=== PATIENT | female | born 1955 | race Caucasian/White ===

== ENCOUNTER 2016-04-06 23:47 | Emergency (ER) | payer OTHER ==
[~2016-04-06] VITALS: Ht 165.1 cm; Wt 67.1 kg
[~2016-04-06 23:47] MED LIST: ASPIRIN81 M4 PO; CRESTOR5 M1 PO; EVISTA60 MG PO; FISH OIL 1,0001 EAC1 PO; MAGNESIUM250 M3 PO
--- NOTE | 2016-04-07 00:03 | ED GI/GU/ABDOMINAL COMPLAINT ---
History of Present Illness General Chief Complaint: Abdominal Pain/Flank Pain Stated Complaint: "LT FLANK PAIN RADIATES TO BACK" Source: patient Exam Limitations: no limitations Vital Signs & Intake/Output Vital Signs & Intake/Output Vital Signs Date Time Temp Pulse Resp B/P Pulse O2 O2 Flow FiO2 Ox Delivery Rate 04/07 0224 96.8 67 18 140/77 99 Room Air 04/07 0003 98 Room Air 04/06 2353 95.6 101 18 148/87 99 Room Air ED Intake and Output 04/07 0000 04/06 1200 Intake Total Output Total Balance Patient 148 lb Weight Allergies Coded Allergies: NO KNOWN ALLERGIES (02/25/12) Triage Note: PT FROM [facility] C/O LEFT SIDED FLANK PAIN. PT STATES SHE THOUGHT IT WAS A UTI THIS AFTERNOON WITH BACK PAIN AND LOWER ABD PAIN AND PT STATES " I FEEL LIKE I HAVE TO PEE, BUT I CANT. I HAVE LEFT SIDED LOWER BACK PAIN THAT RADIATES TO MY LEFT ABD." PT HUNCHED OVER IN TRIAGE. RESTRICTED EXTREMEITY BRACELET APPLIED TO RIGHT ARM FOR MASECTOMY. PT TO RM 1 AWAITING PROVIDER EVAL. PT STATES +N -V/D. Triage Nurses Notes Reviewed? yes ? N Is pt currently ? No HPI: THIS PATIENT IS A 60-YEAR-OLD FEMALE who presented to the emergency department today for evaluation of left flank pain and lower abdominal pain. The patient reported that this morning she felt like she had a urinary tract infection due to a 6 out of 10 pain near her bladder and urinary frequency. However, now she reported she is unable to urinate and reported that she developed sharp, 9 out of 10 left flank pain at approximately 11:00 this evening. She reported that the pain goes into the left side of her abdomen. She reported intermittent chills and mild nausea. She denied any fevers, vomiting, chest pain, difficulty breathing, constipation, diarrhea, or any other associated symptoms. (FREDRICK MEDINA,LEV) Reconcile Medications Aspirin (Aspirin*) 81 MG TAB.CHEW 1 TAB PO Friday HEART HEALTH ( Reported) Magnesium 250 MG TABLET 2 TAB PO DAILY SUPPLEMENT (Reported) Metoclopramide HCl (Reglan) 10 MG TABLET 1 TAB PO 4 TIMES/DAY PRN NAUSEA 30 minutes before meals and bedtime [place]-3 Fatty Acids/Fish Oil (Fish Oil 1,000 MG Softgel) 1 EACH CAPSULE 1 CAP PO DAILY SUPPLEMENT (Reported) Oxycodone HCl/Acetaminophen (Percocet 5-325 MG Tablet) 5 MG-325 MG TABLET 1 TAB PO BID PRN PAIN Raloxifene Hydrochloride (Evista) 60 MG TABLET 1 TAB PO DAILY BONE (Reported) Rosuvastatin Calcium (Crestor) 5 MG TABLET 1 TAB PO DAILY CHOLESTEROL ( Reported) (RAMON GNUYEN,ITALIA Palmer) Past History Travel History Traveled to [place] past 21 day No Medical History Any Pertinent Medical History? see below for history Cardiovascular: hyperlipidemia, MITRAL VALVE Musculoskeletal: osteoporosis Cancer(s): breast cancer Surgical History Surgical History: cholecystectomy, bilateral mastectomy Psychosocial History What is your primary language Chinese Tobacco Use: Never used ETOH Use: occasional use Illicit Drug Use: denies illicit drug use Family History Hx Contributory? No (LEV ALCALA PA-C) Review of Systems Review of Systems Constitutional: Reports: see HPI. EENTM: Reports: no symptoms. Respiratory: Reports: no symptoms. Cardiovascular: Reports: no symptoms. GI: Reports: see HPI. Genitourinary: Reports: see HPI. Musculoskeletal: Reports: see HPI. Skin: Reports: no symptoms. Neurological/Psychological: Reports: no symptoms. All Other Systems: Reviewed and Negative (LEV ALCALA PA-C) Physical Exam Physical Exam Gastrointestinal: normal bowel sounds, soft, no organomegaly, MILD SUPRAPUBIC TENDERNESS. nO PERITONEAL SIGNS. nO REBOUND OR GUARDING. nO mCbURNEY'S POINT TENDERNESS. nEGATIVE rOVSING SIGN. nEGATIVE [place] SIGN Comments: Well-developed well-nourished person in moderate distress HEENT: Normal EENT exam, head normocephalic, moist mucous membranes Neck: Supple, no lymphadenopathy Back: Normal gait. Normal inspection. Positive left-sided CVA tenderness. No midline tenderness Cardiovascular: Regular rate and rhythm with no murmurs, rubs, or gallops Respiratory: Lungs clear to auscultation bilaterally with no wheezes, rales, rhonchi Extremity: Normal and equal pulses Neuro: Alert oriented x3, cranial nerves II through XII grossly intact. Skin: No appreciable rash on exposed skin, skin is warm and dry. Psych: Mood and affect is normal, memory and judgment is normal. Core Measures ACS in differential dx? Yes Severe Sepsis Present: No Septic Shock Present: No (LEV ALCALA PA-C) Progress Differential Diagnosis: AAA, AMI, appendicitis, biliary colic, bowel obstruction , colon cancer, cholecystitis, diverticulitis, ectopic , endometritis, gastritis, hepatitis, ischemic bowel, inflamm bowel dis, intrauterine , kidney stone, ovarian cyst, ovarian torsion, pancreatitis, PID/cervicitis, PUD/ GERD, perforated viscous, threatened AB, UTI/pyelo Plan of Care: Orders Procedure Date/time Status URINE 04/07 1 Complete URINALYSIS 04/07 1 Complete COMPREHENSIVE METABOLIC PANEL 04/07 1 Complete CBC WITHOUT DIFFERENTIAL 04/07 1 Complete Current Medications Sig/Delmar Start time Last Medication Dose Stop Time Status Admin Morphine Sulfate 4 MG ONCE ONE 04/07 29 CAN (Morphine) 04/07 30 Laboratory Tests 04/07/16 0116: Urine Color YEL, Urine Clarity CLEAR, Urine pH 7.0, Ur Specific [place] 1.015, Urine Protein NEG, Urine Ketones NEG, Urine Nitrite NEG, Urine Bilirubin NEG, Urine Urobilinogen 0.2, Ur Leukocyte Esterase NEG, Ur Microscopic SEDIMENT EXAMINED, Urine RBC 5-10 H, Urine WBC RARE, Ur Epithelial Cells RARE, Urine Hemoglobin MOD H, Urine Glucose NEG, Urine Test NEGATIVE 04/07/16 0005: Anion Gap 15, Estimated GFR > 60, BUN/Creatinine Ratio 20.0, Glucose 127 H, Calcium 9.7, Total Bilirubin 0.5, AST 25, ALT 48, Alkaline Phosphatase 68, Total Protein 7.4, Albumin 4.5, Globulin 2.9, Albumin/Globulin Ratio 1.6, CBC w Diff NO MAN DIFF REQ, RBC 4.62, MCV 90.2, MCH 30.7, RDW 13.0, MPV 7.5, Gran % 56.4, Lymphocytes % 33.0, Monocytes % 8.1, Eosinophils % 2.1, Basophils % 0.4, Absolute Granulocytes 4.8, Absolute Lymphocytes 2.8, Absolute Monocytes 0.7 H, Absolute Eosinophils 0.2, Absolute Basophils 0, PUBS MCHC 34.1 Initial ED EKG: none Hand-Off Endorsed To: RAMON NGUYEN,ITALIA Palmer Endorsed Time: 40 Pending: CT, labs (FREDRICK MEDINA,LEV) Diagnostic Imaging: Viewed by Me: CT Scan. Discussed w/RAD: CT Scan. Radiology Impression: abd/pelvic ct... no acute findings... full report below. Comments: PATIENT: JONY CROWLEY PRESENT AGE: 60 PATIENT ACCOUNT NO: [id number] : 56 LOCATION: [facility] ORDERING PHYSICIAN: LEV ALCALA PA-C SERVICE DATE: 04/07/16 EXAM TYPE: CAT - CT ABD & PELVIS W/O IV CONTRAS EXAMINATION: CT ABDOMEN AND PELVIS WITHOUT CONTRAST CLINICAL INFORMATION: Left flank pain COMPARISON: None. TECHNIQUE: Multidetector volumetric imaging was performed from the superior aspect of the liver through the pubic symphysis. Sagittal and coronal reformatted images were obtained on the technologist's workstation. DLP: 308 mGy-cm. FINDINGS: LUNG BASES: The visualized lung bases are unremarkable. Bilateral breast implants partially visualized. LIVER, GALLBLADDER, AND BILIARY TREE: The liver is normal in size, shape, and attenuation. Hepatic cysts are noted. No solid hepatic lesion or biliary ductal dilatation is present. Status post cholecystectomy with surgical clips in the gallbladder fossa. PANCREAS: Unremarkable. SPLEEN: Unremarkable. ADRENAL GLANDS: Unremarkable. KIDNEYS AND URETERS: The kidneys are normal in size, shape, and attenuation. No hydronephrosis, hydroureter, or calculi seen. No perinephric stranding. BLADDER: Unremarkable. GASTROINTESTINAL TRACT: The stomach and small bowel appear unremarkable. No dilated loops of bowel or evidence of obstruction. No colonic wall thickening or inflammatory change. Mild colonic stool burden. Likely status post appendectomy with suture line seen at the cecum. ABDOMINAL WALL: No significant hernia is appreciated. LYMPH NODES: Normal. VASCULAR: Unremarkable. PELVIC VISCERA: The uterus and adnexa are unremarkable. Multiple phleboliths are seen in the pelvis. OSSEOUS STRUCTURES: No acute or suspicious osseous abnormality. IMPRESSION: No acute findings of the abdomen or pelvis. No hydronephrosis or nephrolithiasis. DICTATED BY: BANDAR STARR MD DATE/TIME DICTATED:04/07/16143 AUTOCAD DESIGNER:ELDER DATE/TIME TRANSCRIBED:04/07/16143 CONFIDENTIAL, DO NOT COPY WITHOUT APPROPRIATE AUTHORIZATION. <Electronically signed in Other Vendor System> SIGNED BY: MATTY NGUYEN,BANDAR 04/07 0150 (RAMON NGUYEN,ITALIA Palmer) Departure Departure Disposition: HOME OR SELF CARE Condition: Stable Clinical Impression Primary Impression: Ureterolithiasis Referrals: CLARIBEL NGUYEN,REYNA Perea (PCP/Family) KENNY MORRISSEY MD Additional Instructions: Take medication for pain as prescribed. Strain your urine. Take medication for nausea as prescribed. Be sure to stay hydrated. Please call to make a follow- up appointment with the urologist whose information has been provided to this packet. Return to the emergency department for any worsening symptoms or concerns. Departure Forms: Customer Survey General Discharge Information Prescriptions: Current Visit Scripts Oxycodone HCl/Acetaminophen (Percocet 5-325 MG Tablet) 1 TAB PO BID PRN PAIN #10 TAB Metoclopramide HCl (Reglan) 1 TAB PO 4 TIMES/DAY PRN NAUSEA #16 TAB 30 minutes before meals and bedtime (FREDRICK MEDINA,LEV) Departure Comments 04/07/16, 2:24am... pt feels well... ct scan negative... given her story, it is most consistent with passing a kidney stone... other labs benign... pt safe for discharge with follow up with pmd, consider urology referral. (RAMON NGUYEN,ITALIA Palmer)
[2016-04-07 00:23] LABS: ABSOLUTE BASOPHIL COUNT 0 /CUMM (0.0-0.2); ABSOLUTE EOSINOPHIL COUNT 0.2 /CUMM (0.0-0.7); ABSOLUTE GRANULOCYTE CT 4.8 /CUMM (1.4-6.5); ABSOLUTE LYMPH COUNT 2.8 /CUMM (1.2-3.4); ABSOLUTE MONOCYTE COUNT 0.7 /CUMM (0.10-0.60); BASOPHIL % 0.4 % (0.0-2.0); EOSINOPHIL % 2.1 % (0-5); GRANULOCYTE % 56.4 % (42.2-75.2); HEMATOCRIT 41.6 % (37-47); MEAN CORPUSCULAR HGB 30.7 PG (27.0-31.0); MEAN CORPUSCULAR HGB CONC 34.1 G/DL (33.0-37.0); MEAN CORPUSCULAR VOLUME 90.2 FL (81.0-99.0); MEAN PLATELET VOLUME 7.5 FL (7.4-10.4); PLATELET COUNT 313 /CUMM (130-400); RED BLOOD CELL CT 4.62 /CUMM (4.20-5.40); WHITE BLOOD CELL COUNT 8.4 /CUMM (4.8-10.8)
[2016-04-07] MEDS ORDERED: REGLAN10 M1 PO (00:42)
[2016-04-07] MEDS ORDERED: PERCOCET 5-3251 EACH PO (00:42)
--- NOTE | 2016-04-07 01:50 | CT SCAN REPORT ---
EXAMINATION: CT ABDOMEN AND PELVIS WITHOUT CONTRAST CLINICAL INFORMATION: Left flank pain COMPARISON: None. TECHNIQUE: Multidetector volumetric imaging was performed from the superior aspect of the liver through the pubic symphysis. Sagittal and coronal reformatted images were obtained on the technologist's workstation. DLP: 308 mGy-cm. FINDINGS: LUNG BASES: The visualized lung bases are unremarkable. Bilateral breast implants partially visualized. LIVER, GALLBLADDER, AND BILIARY TREE: The liver is normal in size, shape, and attenuation. Hepatic cysts are noted. No solid hepatic lesion or biliary ductal dilatation is present. Status post cholecystectomy with surgical clips in the gallbladder fossa. PANCREAS: Unremarkable. SPLEEN: Unremarkable. ADRENAL GLANDS: Unremarkable. KIDNEYS AND URETERS: The kidneys are normal in size, shape, and attenuation. No hydronephrosis, hydroureter, or calculi seen. No perinephric stranding. BLADDER: Unremarkable. GASTROINTESTINAL TRACT: The stomach and small bowel appear unremarkable. No dilated loops of bowel or evidence of obstruction. No colonic wall thickening or inflammatory change. Mild colonic stool burden. Likely status post appendectomy with suture line seen at the cecum. ABDOMINAL WALL: No significant hernia is appreciated. LYMPH NODES: Normal. VASCULAR: Unremarkable. PELVIC VISCERA: The uterus and adnexa are unremarkable. Multiple phleboliths are seen in the pelvis. OSSEOUS STRUCTURES: No acute or suspicious osseous abnormality. IMPRESSION: No acute findings of the abdomen or pelvis. No hydronephrosis or nephrolithiasis.
[2016-04-07 02:24] VITALS: BP 140/77
== END 2016-04-07 02:24 ==
LOC: ERH 23:47
PROVIDERS: Physician Assistant
DX: N20.1 Calculus of ureter (principal)
CPT/HCPCS: 74176; 81001; 81025; 96361; 96374; 96375; J1885; J2405; J2765